=== PATIENT | female | born 1945 | race American Indian/Alaskan Native ===

== ENCOUNTER 2019-06-29 09:45 | Outpatient (CLI) | payer MEDICARE ==
[2019-06-29 10:45] LABS: Blood Urea Nitrogen 9 mg/dL (7-17)
--- NOTE | 2019-06-29 12:08 | Cat Scan Report ---
CT abdomen pelvis w con INDICATION / CLINICAL INFORMATION: DIVERTICULITIS. Lower abdominal pain. TECHNIQUE: Routine CT abdomen and pelvis with IV contrast All CT scans at this location are performed using CT d ose reduction for ALARA by means of automated exposure control. COMPARISON: None available. FINDINGS: The lower lungs are clear. Liver, spleen, pancreas adrenal glands and kidneys are normal. Large type II hiatal hernia. No free a ir or free fluid. No bowel obstruction. There has been significant improvement in the peridiverticular abscess within the distal sigmoid colo n when compared to the prior exam on 06/22/2019, now measuring 1 cm in diameter, previously measuring approximately 4 cm in greatest diameter There is some persistent inflammation identified involving the distal sigmoid colon. Fibroid uterus. Tiny free pelvic fluid. The appendix is poorly identified on this exam. Scattered atherosclerotic [place] cification of nondilated abdominal aorta. IMPRESSION: Persistent interval improvement in the peridiverticular abscess size within the lower pelvis/distal s igmoid colon when compared to 06/22/2019. Signer Name: Kb Medrano MD Signed: 06/29/2019 12:03 PM Workstation Name: [id number]
== END 2019-06-29 09:46 | disposition home or self-care (01) ==
LOC: CT 09:45
PROVIDERS: ATTEND Surgery
DX: D25.9 Leiomyoma of uterus, unspecified (principal); K57.30 Diverticulosis of large intestine without perforation or abscess without bleeding; I70.0 Atherosclerosis of aorta; M25.48 Effusion, other site
CPT/HCPCS: 36415; 74177; 82565; 84520; Q9967